=== PATIENT | male | born 1975 | race African-American/Black ===

== ENCOUNTER 2018-11-17 12:32 | Emergency (ER) | payer MEDICAID ==
[~2018-11-17] VITALS: Ht 177.8 cm; Wt 83.6 kg
[2018-11-17 12:38] VITALS: BP 126/78
--- NOTE | 2018-11-17 13:05 | NUR ---
Patient/Caregiver given discharge instructions and they have confirmed that they understand the instructions. Patient ambulatory with steady gait.
== END 2018-11-17 13:07 | disposition home or self-care (01) ==
LOC: ED 12:53
DX: J30.2 Other seasonal allergic rhinitis (principal)
CPT/HCPCS: 99283